=== PATIENT | female | born 1955 ===

== ENCOUNTER 2017-02-06 10:41 | Outpatient (CLI) | payer MEDICAID ==
[~2017-02-06 10:41] MED LIST: ARIMIDEX1 MG ORAL; BIOTIN300 MC1 PO; CALCIUM CITRAT1 EA10 PO; CALCIUM CITRAT480 GM PO; CO Q-10400 MG PO; MELOXICAM7.5 MG PO; SIMVASTATIN10 MG ORAL; VITAMIN D35000 UNIT PO
[2017-02-07] MEDS ORDERED: DEXILANT30 MG ORAL (15:25)
--- NOTE | 2017-02-07 15:29 | GI Progress Note ---
Assessment/Plan Problems: (1) Rectal pain ICD Codes: K62.89 - Other specified diseases of anus and rectum SNOMED: 42955275 (2) Constipation ICD Codes: K59.00 - Constipation, unspecified SNOMED: 83571669 (3) Colon polyps ICD Codes: K63.5 - Colon polyps SNOMED: 59136408 (4) Abdominal pain ICD Codes: R10.9 - Abdominal pain SNOMED: 66359818 (5) Blood in stool ICD Codes: K92.1 - Blood in stool SNOMED: 480905003 Status: stable Status Narrative Seen with Dr. Olivarez. Assessment/Plan Rx Anusol HC RTC x 3 months repeat colonoscopy in 2019 Subjective Subjective GERD, dexilant constant hunger colonoscopy 2014 patient @ [facility] s/p tx possible nodule in rectum? felt happened after 2014 colonoscopy. partial emptying of bowel Objective T 98.1 BP 121/69 P 63 96 RA weight gain General Appearance: no apparent distress, alert Cardiovascular: normal rate Respiratory/Chest: normal breath sounds, no respiratory distress Abdominal Exam: normal bowel sounds, non tender, soft Extremities: normal range of motion Malorie Herrera NJes Feb 07, 2017 15:29
== END 2017-02-06 11:45 | disposition home or self-care (01) ==
LOC: PAN 10:41
DX: K59.00 Constipation, unspecified (principal); K62.89 Other specified diseases of anus and rectum; K63.5 Polyp of colon; R10.9 Unspecified abdominal pain; K92.1 Melena
CPT/HCPCS: 99211

== ENCOUNTER 2017-07-02 13:57 | Outpatient (CLI) | payer MEDICAID ==
[~2017-07-02 13:57] MED LIST changes: +DEXILANT30 MG ORAL
[2017-07-02 14:39] VITALS: BP 120/60
--- NOTE | 2017-07-02 15:01 | GI Progress Note ---
Assessment/Plan Problems: (1) Abdominal pain ICD Codes: R10.9 - Abdominal pain SNOMED: 23500870 (2) Rectal pain ICD Codes: K62.89 - Other specified diseases of anus and rectum SNOMED: 90401036 (3) Constipation ICD Codes: K59.00 - Constipation, unspecified SNOMED: 73342280 (4) Colon polyps ICD Codes: K63.5 - Colon polyps SNOMED: 86731252 Status: stable Status Narrative Seen with Dr. Olivarez. Assessment/Plan Rx Anusol HC RTC PRN repeat colonoscopy in 2019 Subjective Subjective GERD >> has d/c Dexilant x 1 month constipation, rectal bleed >> occasionally may have a small cut in anal which may cause burning/itching - more noted after surgery last year states Dr. Sevilla recommends a Impedance Manometry which is pending. Objective Last 24 Hour Vital Signs Date Time Temp Pulse Resp B/P (MAP) Pulse Ox O2 Delivery O2 Flow Rate FiO2 07/02/17 14:39 97.6 74 16 120/60 General Appearance: WD/WN, no apparent distress, alert Cardiovascular: normal rate Respiratory/Chest: normal breath sounds, no respiratory distress Abdominal Exam: normal bowel sounds, non tender, soft Extremities: normal range of motion, non-tender Malorie Herrera NJes Jul 02, 2017 15:01
--- NOTE | 2017-07-02 15:01 | GI Progress Note ---
Assessment/Plan Problems: (1) Abdominal pain ICD Codes: R10.9 - Abdominal pain SNOMED: 87873226 (2) Rectal pain ICD Codes: K62.89 - Other specified diseases of anus and rectum SNOMED: 79843894 (3) Constipation ICD Codes: K59.00 - Constipation, unspecified SNOMED: 48303102 (4) Colon polyps ICD Codes: K63.5 - Colon polyps SNOMED: 42016741 Status: stable Status Narrative Seen with Dr. Olivarez. Assessment/Plan Rx Anusol HC RTC PRN repeat colonoscopy in 2019 Subjective Subjective GERD >> has d/c Dexilant x 1 month constipation, rectal bleed >> occasionally may have a small cut in anal which may cause burning/itching - more noted after surgery last year states Dr. Sevilla recommends a Impedance Manometry which is pending. Objective Last 24 Hour Vital Signs Date Time Temp Pulse Resp B/P (MAP) Pulse Ox O2 Delivery O2 Flow Rate FiO2 07/02/17 14:39 97.6 74 16 120/60 General Appearance: WD/WN, no apparent distress, alert Cardiovascular: normal rate Respiratory/Chest: normal breath sounds, no respiratory distress Abdominal Exam: normal bowel sounds, non tender, soft Extremities: normal range of motion, non-tender Malorie Herrera NJes Jul 02, 2017 15:01
--- NOTE | 2017-07-02 15:01 | GI Progress Note ---
Assessment/Plan Problems: (1) Abdominal pain ICD Codes: R10.9 - Abdominal pain SNOMED: 55004529 (2) Rectal pain ICD Codes: K62.89 - Other specified diseases of anus and rectum SNOMED: 47520101 (3) Constipation ICD Codes: K59.00 - Constipation, unspecified SNOMED: 89643792 (4) Colon polyps ICD Codes: K63.5 - Colon polyps SNOMED: 42849594 Status: stable Status Narrative Seen with Dr. Olivarez. Assessment/Plan Rx Anusol HC RTC PRN repeat colonoscopy in 2019 Subjective Subjective GERD >> has d/c Dexilant x 1 month constipation, rectal bleed >> occasionally may have a small cut in anal which may cause burning/itching - more noted after surgery last year states Dr. Sevilla recommends a Impedance Manometry which is pending. Objective Last 24 Hour Vital Signs Date Time Temp Pulse Resp B/P (MAP) Pulse Ox O2 Delivery O2 Flow Rate FiO2 07/02/17 14:39 97.6 74 16 120/60 General Appearance: WD/WN, no apparent distress, alert Cardiovascular: normal rate Respiratory/Chest: normal breath sounds, no respiratory distress Abdominal Exam: normal bowel sounds, non tender, soft Extremities: normal range of motion, non-tender Malorie Herrera NJes Jul 02, 2017 15:01
== END 2017-07-02 14:45 | disposition home or self-care (01) ==
LOC: PAN 13:57
DX: R10.9 Unspecified abdominal pain (principal); K62.89 Other specified diseases of anus and rectum; K59.00 Constipation, unspecified; K63.5 Polyp of colon
CPT/HCPCS: 99211